=== PATIENT | male | born 2000 | race Caucasian/White ===

== ENCOUNTER 2023-09-07 15:30 | Emergency (ER) | payer MEDICAID ==
[~2023-09-07] VITALS: Ht 188 cm; Wt 86.7 kg
[2023-09-07 15:39] VITALS: BP 142/92; PULSE 75; RESP 18; O2SAT 98
[2023-09-07] MEDS ORDERED: LIDOCAINE W/ EPINEPHRINE 1% 20ML VIAL ID ONE (17:45)
== END 2023-09-07 19:49 | disposition left against medical advice (07) ==
LOC: ER 15:30
DX: S01.111A Laceration without foreign body of right eyelid and periocular area, initial encounter (principal); Z53.21 Procedure and treatment not carried out due to patient leaving prior to being seen by health care provider; W26.8XXA Contact with other sharp object(s), not elsewhere classified, initial encounter; Y93.89 Activity, other specified; Y92.89 Other specified places as the place of occurrence of the external cause; Y99.8 Other external cause status